=== PATIENT | male | born 1970 | race Caucasian/White ===

== ENCOUNTER 2020-03-14 14:56 | Emergency (ER) | payer BC, OTHER | END 2020-03-14 15:36 | disposition home or self-care (01) | LOC: NAV ERS 14:56 | DX: R21 Rash and other nonspecific skin eruption (principal); M19.90 Unspecified osteoarthritis, unspecified site; E78.5 Hyperlipidemia, unspecified; M10.9 Gout, unspecified; J45.998 Other asthma | CPT/HCPCS: 99282 ==

== ENCOUNTER 2021-09-03 12:12 | Emergency (ER) | payer BC, OTHER | END 2021-09-03 12:46 | disposition home or self-care (01) | LOC: NAV ERS 12:12 | DX: R20.2 Paresthesia of skin (principal); T46.4X5A Adverse effect of angiotensin-converting-enzyme inhibitors, initial encounter; E78.5 Hyperlipidemia, unspecified; M10.9 Gout, unspecified; Z79.899 Other long term (current) drug therapy | CPT/HCPCS: 99283 ==

== ENCOUNTER 2022-10-16 10:30 | Emergency (ER) | payer OTHER, BC ==
[2022-10-16 11:33] LABS: #Basophils 0.1 thou/uL (0.0-0.2); #Eosinphils 0.3 thou/uL (0.0-0.7); #Lymphocytes 1.4 thou/uL (1.20-3.40); #Monocytes 0.9 thou/uL (0.11-0.59); #Neutrophils 6.8 thou/uL (1.40-6.50); %Basophils 0.9 % (0.0-1.0); %Eosinophils 2.7 % (0.0-10.0); %Lymphocytes 14.7 % (21.0-51.0); %Monocytes 9.3 % (0.0-10.0); %Neutrophils 72.3 % (42.0-75.0); Hemoglobin 14.2 g/dL (14.0-18.0); Mean Corpuscular HGB CONC 33.9 g/dL (32.0-36.0); Mean Corpuscular Volume 91.5 fl (78.0-98.0); Platelet Count 169 10x3/uL (130-400); Red Blood Cell (RBC) Count 4.58 mill/uL (4.70-6.10); White Blood Cell (WBC) Count 9.4 10x3/uL (4.8-10.8)
[2022-10-16 11:45] LABS: ALT (SGPT) 27 U/L (8-55); AST (SGOT) 14 U/L (5-34); Albumin 4.2 g/dL (3.5-5.0); Alkaline Phosphatase 61 U/L (40-110); Anion Gap 13 mmol/L (10-20); BUN (Urea Nitrogen) 12 mg/dL (8.4-25.7); Bilirubin, Total 0.7 mg/dL (0.2-1.2); Calc. Creatinine Clearance 0 mL/min (70-130); Calcium 9.6 mg/dL (7.8-10.44); Carbon Dioxide 22 mmol/L (22-29); Chloride 105 mmol/L (98-107); Estimated GFR 95; Globulin 2.5 g/dL (2.4-3.5); Glucose 94 mg/dL (70-105); Potassium 4.1 mmol/L (3.5-5.1); Protein, Total 6.7 g/dL (6.0-8.3); Sodium 136 mmol/L (136-145)
[2022-10-16] MEDS ORDERED: Vancomycin HCl 750 MG VIAL ONE (12:12)
[2022-10-16] MEDS ORDERED: Meropenem 500 MG VIAL ONE ×2 (12:13→20:28)
[2022-10-16] MEDS ORDERED: Vancomycin 1 GM VIAL ONE (12:13)
[2022-10-16] MEDS ORDERED: Sodium Chloride 0.9% 100 ML ONE ×2 (12:15→20:28)
[2022-10-16] MEDS ORDERED: Sodium Chloride 0.9% 500 ML ONE (12:15)
[2022-10-17] MEDS ORDERED: Vancomycin HCl 750 MG VIAL ONE (00:57)
[2022-10-17] MEDS ORDERED: Sodium Chloride 0.9% 500 ML ONE (00:57)
[2022-10-17] MEDS ORDERED: Vancomycin 1 GM VIAL ONE (00:57)
[2022-10-17] MEDS ORDERED: Meropenem 500 MG VIAL ONE (04:13)
[2022-10-17] MEDS ORDERED: Sodium Chloride 0.9% 100 ML ONE (04:13)
[2022-10-17] MEDS ORDERED: Sodium Chloride 0.9% 2,000 ML ONE (04:59)
[2022-10-17 06:25] LABS: SARS-CoV-2 NAA Rapid Test Not Detected (NotDetected)
== END 2022-10-17 08:30 | disposition short-term general hospital (02) ==
LOC: NAV ERS 10:30
DX: L03.012 Cellulitis of left finger (principal); L03.91 Acute lymphangitis, unspecified; E78.00 Pure hypercholesterolemia, unspecified; M10.9 Gout, unspecified; Z20.822 Contact with and (suspected) exposure to COVID-19; Z79.899 Other long term (current) drug therapy
CPT/HCPCS: 10060; 80053; 85025; 86140; 87040; 87070; 87205; 96365; 96366; 96367; J2185; J3370; J7030; J7050; U0002

== ENCOUNTER 2023-11-24 14:32 | Emergency (ER) | payer BC ==
[2023-11-25 04:33] LABS: SARS-CoV-2 N1 Negative; SARS-CoV-2 N2 Negative; SARS-CoV-2 RNAse P1 Positive
== END 2023-11-24 15:52 | disposition home or self-care (01) ==
LOC: NAV ERS 14:32
DX: J10.1 Influenza due to other identified influenza virus with other respiratory manifestations (principal); E78.5 Hyperlipidemia, unspecified; Z79.899 Other long term (current) drug therapy
CPT/HCPCS: 87635; 87804; 99283

== ENCOUNTER 2025-08-23 23:25 | Emergency (ER) | payer OTHER ==
[2025-08-23] MEDS ORDERED: Ondansetron PF 4 MG/2 ML Vial ONE (23:46)
[2025-08-23 23:52] LABS: #Basophils 0.2 thou/uL (0.0-0.2); #Eosinophils 0.1 thou/uL (0.0-0.7); #Lymphocytes 1.5 thou/uL (1.20-3.40); #Monocytes 0.6 thou/uL (0.11-0.59); #Neutrophils 7.5 thou/uL (1.40-6.50); %Basophils 2.4 % (0.0-1.0); %Eosinophils 0.7 % (0.0-10.0); %Lymphocytes 15.5 % (21.0-51.0); %Monocytes 5.8 % (0.0-10.0); %Neutrophils 75.7 % (42.0-75.0); Hematocrit 43.8 % (42.0-52.0); Hemoglobin 15.6 g/dL (14.0-18.0); Mean Corpuscular Hemoglobin 30.5 pg (27.0-31.0); Mean Corpuscular Volume 85.4 fl (78.0-98.0); Platelet Count 249 10x3/uL (130-400); Red Blood Cell (RBC) Count 5.13 mill/uL (4.70-6.10); White Blood Cell (WBC) Count 9.9 10x3/uL (4.8-10.8)
[2025-08-24 00:09] LABS: ALT (SGPT) 38 U/L (Less than 45); AST (SGOT) 30 U/L (11-34); Albumin 4.6 g/dL (3.1-4.5); Alkaline Phosphatase 74 U/L (40-110); Anion Gap 16 mmol/L (10-20); BUN (Urea Nitrogen) 11 mg/dL (8.4-25.7); Bilirubin, Total 0.8 mg/dL (0.3-1.2); Calc. Creatinine Clearance 0 mL/min (70-130); Calcium 10.0 mg/dL (7.8-10.44); Carbon Dioxide 26 mmol/L (22-29); Chloride 102 mmol/L (98-107); Globulin 2.9 g/dL (2.4-3.5); Glucose 145 mg/dL (70-105); Lipase 19 U/L (8-78); Potassium 3.9 mmol/L (3.5-5.1); Sodium 140 mmol/L (136-145)
[2025-08-24] MEDS ORDERED: Metoclopramide HCl 10 MG (2 mL) VIAL ONE (00:42)
[2025-08-24] MEDS ORDERED: diphenhydrAMINE 50 MG/ML VIAL ONE (01:14)
== END 2025-08-24 03:55 | disposition home or self-care (01) ==
LOC: NAV ERS 23:25
DX: R11.2 Nausea with vomiting, unspecified (principal); R10.9 Unspecified abdominal pain
CPT/HCPCS: 80053; 83690; 85025; 96361; 96365; 96367; 96372; 96375; J1200; J2405; J2550; J2765; J7030